=== PATIENT | male | born 1985 | race Caucasian/White ===

== ENCOUNTER 2020-02-25 22:44 | Emergency (ER) | payer OTHER ==
[~2020-02-25] VITALS: Ht 180.3 cm; Wt 81.6 kg
[2020-02-25 22:50] VITALS: BP 127/77
[2020-02-25] MEDS ORDERED: KETOROLAC 60 MG/2 ML VIAL IM ONE (23:15)
[2020-02-25 23:59] VITALS: BP 127/77
== END 2020-02-25 23:59 | disposition home or self-care (01) ==
LOC: MED 22:44
DX: R07.89 Other chest pain (principal)
CPT/HCPCS: 93005; 96372; 99283; J1885